=== PATIENT | female | born 1980 ===

== ENCOUNTER 2018-07-06 10:38 | Outpatient (CLI) | payer SELFPAY | END 2018-07-06 10:39 | disposition home or self-care (01) | LOC: C.LAB 10:38 | DX: Z00.00 Encounter for general adult medical examination without abnormal findings (principal) ==

== ENCOUNTER 2018-08-10 09:53 | Outpatient (CLI) | payer SELFPAY | END 2018-08-10 09:54 | disposition home or self-care (01) | LOC: C.LAB 09:53 | DX: R82.90 Unspecified abnormal findings in urine (principal); M19.90 Unspecified osteoarthritis, unspecified site; R73.01 Impaired fasting glucose ==

== ENCOUNTER 2018-09-21 11:06 | Outpatient (CLI) | payer SELFPAY | END 2018-09-21 11:07 | disposition home or self-care (01) | LOC: C.LAB 11:06 | DX: E11.9 Type 2 diabetes mellitus without complications (principal) ==